=== PATIENT | male | born 1935 | race American Indian/Alaskan Native ===

== ENCOUNTER 2019-09-27 14:26 | Outpatient (CLI) | payer MEDICARE | END 2019-09-27 14:27 | disposition home or self-care (01) | LOC: WOUND 14:26 | PROVIDERS: ATTEND Surgery | DX: N30.41 Irradiation cystitis with hematuria (principal); Z85.46 Personal history of malignant neoplasm of prostate | CPT/HCPCS: 99205; G0463 ==

== ENCOUNTER 2019-10-23 10:02 | Outpatient (CLI) | payer MEDICARE | END 2019-10-23 10:03 | disposition home or self-care (01) | LOC: WOUND 10:02 | PROVIDERS: ATTEND Surgery | DX: N30.41 Irradiation cystitis with hematuria (principal); Z85.46 Personal history of malignant neoplasm of prostate | CPT/HCPCS: 99183; G0277 ==

== ENCOUNTER 2019-10-24 09:54 | Outpatient (CLI) | payer MEDICARE | END 2019-10-24 09:55 | disposition home or self-care (01) | LOC: WOUND 09:54 | PROVIDERS: ATTEND Internal Medicine | DX: M87.88 Other osteonecrosis, other site (principal); L59.8 Other specified disorders of the skin and subcutaneous tissue related to radiation; N30.41 Irradiation cystitis with hematuria; Z85.46 Personal history of malignant neoplasm of prostate; Y84.2 Radiological procedure and radiotherapy as the cause of abnormal reaction of the patient, or of later complication, without mention of misadventure at the time of the procedure | CPT/HCPCS: 99183; G0277 ==

== ENCOUNTER 2019-10-25 09:43 | Outpatient (CLI) | payer MEDICARE | END 2019-10-25 09:44 | disposition home or self-care (01) | LOC: WOUND 09:43 | PROVIDERS: ATTEND Surgery | DX: M87.88 Other osteonecrosis, other site (principal); N30.41 Irradiation cystitis with hematuria; Z85.46 Personal history of malignant neoplasm of prostate; Y84.2 Radiological procedure and radiotherapy as the cause of abnormal reaction of the patient, or of later complication, without mention of misadventure at the time of the procedure | CPT/HCPCS: 99183; G0277 ==

== ENCOUNTER 2019-10-26 09:49 | Outpatient (CLI) | payer MEDICARE | END 2019-10-26 09:50 | disposition home or self-care (01) | LOC: WOUND 09:49 | PROVIDERS: ATTEND Surgery | DX: M87.88 Other osteonecrosis, other site (principal); N30.41 Irradiation cystitis with hematuria; Z85.46 Personal history of malignant neoplasm of prostate | CPT/HCPCS: 99183; G0277 ==

== ENCOUNTER 2019-10-27 10:04 | Outpatient (CLI) | payer MEDICARE | END 2019-10-27 10:05 | disposition home or self-care (01) | LOC: VAS 10:04 → WOUND 10:04 | PROVIDERS: ATTEND Internal Medicine | DX: M87.88 Other osteonecrosis, other site (principal); N30.41 Irradiation cystitis with hematuria; Z85.46 Personal history of malignant neoplasm of prostate | CPT/HCPCS: 99183; G0277 ==

== ENCOUNTER 2019-10-30 10:00 | Outpatient (CLI) | payer MEDICARE | END 2019-10-30 12:00 | disposition home or self-care (01) | LOC: WOUND 10:00 | PROVIDERS: ATTEND Surgery | DX: M87.88 Other osteonecrosis, other site (principal); N30.41 Irradiation cystitis with hematuria; Z85.46 Personal history of malignant neoplasm of prostate | CPT/HCPCS: 99183; G0277 ==

== ENCOUNTER 2019-10-31 10:00 | Outpatient (CLI) | payer MEDICARE | END 2019-10-31 10:01 | disposition home or self-care (01) | LOC: WOUND 10:00 | PROVIDERS: ATTEND Internal Medicine | DX: M87.88 Other osteonecrosis, other site (principal); N30.41 Irradiation cystitis with hematuria; Z85.46 Personal history of malignant neoplasm of prostate | CPT/HCPCS: 99183; G0277 ==

== ENCOUNTER 2019-11-02 09:57 | Outpatient (CLI) | payer MEDICARE | END 2019-11-02 09:58 | disposition home or self-care (01) | LOC: WOUND 09:57 | PROVIDERS: ATTEND Surgery | DX: M87.88 Other osteonecrosis, other site (principal); N30.41 Irradiation cystitis with hematuria; Z85.46 Personal history of malignant neoplasm of prostate; L59.8 Other specified disorders of the skin and subcutaneous tissue related to radiation; Y84.2 Radiological procedure and radiotherapy as the cause of abnormal reaction of the patient, or of later complication, without mention of misadventure at the time of the procedure | CPT/HCPCS: 99183; G0277 ==

== ENCOUNTER 2019-11-06 09:38 | Outpatient (CLI) | payer MEDICARE | END 2019-11-06 09:39 | disposition home or self-care (01) | LOC: WOUND 09:38 | PROVIDERS: ATTEND Surgery | DX: M87.88 Other osteonecrosis, other site (principal); N30.41 Irradiation cystitis with hematuria; L59.8 Other specified disorders of the skin and subcutaneous tissue related to radiation; Z85.46 Personal history of malignant neoplasm of prostate; Y84.2 Radiological procedure and radiotherapy as the cause of abnormal reaction of the patient, or of later complication, without mention of misadventure at the time of the procedure | CPT/HCPCS: 99183; G0277 ==

== ENCOUNTER 2019-11-07 10:00 | Outpatient (CLI) | payer MEDICARE | END 2019-11-07 10:01 | disposition home or self-care (01) | LOC: WOUND 10:00 | PROVIDERS: ATTEND Internal Medicine | DX: M87.88 Other osteonecrosis, other site (principal); N30.41 Irradiation cystitis with hematuria; L59.8 Other specified disorders of the skin and subcutaneous tissue related to radiation; Z85.46 Personal history of malignant neoplasm of prostate; Y84.2 Radiological procedure and radiotherapy as the cause of abnormal reaction of the patient, or of later complication, without mention of misadventure at the time of the procedure | CPT/HCPCS: 99183; G0277 ==

== ENCOUNTER 2019-11-08 10:00 | Outpatient (CLI) | payer MEDICARE | END 2019-11-08 12:00 | disposition home or self-care (01) | LOC: WOUND 10:00 | PROVIDERS: ATTEND Surgery | DX: M87.88 Other osteonecrosis, other site (principal); N30.41 Irradiation cystitis with hematuria; L59.8 Other specified disorders of the skin and subcutaneous tissue related to radiation; Z85.46 Personal history of malignant neoplasm of prostate; Y84.2 Radiological procedure and radiotherapy as the cause of abnormal reaction of the patient, or of later complication, without mention of misadventure at the time of the procedure | CPT/HCPCS: 99183; G0277 ==

== ENCOUNTER 2019-11-09 10:00 | Outpatient (CLI) | payer MEDICARE | END 2019-11-09 10:01 | disposition home or self-care (01) | LOC: WOUND 10:00 | PROVIDERS: ATTEND Surgery | DX: M87.88 Other osteonecrosis, other site (principal); L59.8 Other specified disorders of the skin and subcutaneous tissue related to radiation; N30.41 Irradiation cystitis with hematuria; Z85.46 Personal history of malignant neoplasm of prostate; Y84.2 Radiological procedure and radiotherapy as the cause of abnormal reaction of the patient, or of later complication, without mention of misadventure at the time of the procedure | CPT/HCPCS: 99183; G0277 ==

== ENCOUNTER 2019-11-10 08:58 | Outpatient (CLI) | payer MEDICARE | END 2019-11-10 08:59 | disposition home or self-care (01) | LOC: WOUND 08:58 | PROVIDERS: ATTEND Internal Medicine | DX: M87.88 Other osteonecrosis, other site (principal); L59.8 Other specified disorders of the skin and subcutaneous tissue related to radiation; N30.41 Irradiation cystitis with hematuria; Z85.46 Personal history of malignant neoplasm of prostate; Y84.2 Radiological procedure and radiotherapy as the cause of abnormal reaction of the patient, or of later complication, without mention of misadventure at the time of the procedure | CPT/HCPCS: 99183; G0277 ==

== ENCOUNTER 2019-11-14 09:24 | Outpatient (CLI) | payer MEDICARE | END 2019-11-14 09:25 | disposition home or self-care (01) | LOC: WOUND 09:24 | PROVIDERS: ATTEND Internal Medicine | DX: M87.88 Other osteonecrosis, other site (principal); L59.8 Other specified disorders of the skin and subcutaneous tissue related to radiation; N30.41 Irradiation cystitis with hematuria; Y84.2 Radiological procedure and radiotherapy as the cause of abnormal reaction of the patient, or of later complication, without mention of misadventure at the time of the procedure | CPT/HCPCS: 99183; G0277 ==

== ENCOUNTER 2019-11-15 09:28 | Outpatient (CLI) | payer MEDICARE | END 2019-11-15 09:29 | disposition home or self-care (01) | LOC: WOUND 09:28 | PROVIDERS: ATTEND Surgery | DX: M87.88 Other osteonecrosis, other site (principal); L59.8 Other specified disorders of the skin and subcutaneous tissue related to radiation; N30.41 Irradiation cystitis with hematuria; Z85.46 Personal history of malignant neoplasm of prostate; Y84.2 Radiological procedure and radiotherapy as the cause of abnormal reaction of the patient, or of later complication, without mention of misadventure at the time of the procedure | CPT/HCPCS: 99183; G0277 ==

== ENCOUNTER 2019-11-16 09:04 | Outpatient (CLI) | payer MEDICARE | END 2019-11-16 09:05 | disposition home or self-care (01) | LOC: WOUND 09:04 | PROVIDERS: ATTEND Surgery | DX: M87.88 Other osteonecrosis, other site (principal); L59.8 Other specified disorders of the skin and subcutaneous tissue related to radiation; N30.41 Irradiation cystitis with hematuria; Z85.46 Personal history of malignant neoplasm of prostate; Y84.2 Radiological procedure and radiotherapy as the cause of abnormal reaction of the patient, or of later complication, without mention of misadventure at the time of the procedure | CPT/HCPCS: 99183; G0277 ==

== ENCOUNTER 2019-11-17 09:41 | Outpatient (CLI) | payer MEDICARE | END 2019-11-17 09:42 | disposition home or self-care (01) | LOC: WOUND 09:41 | PROVIDERS: ATTEND Surgery | DX: M87.88 Other osteonecrosis, other site (principal); L59.8 Other specified disorders of the skin and subcutaneous tissue related to radiation; N30.41 Irradiation cystitis with hematuria; Z85.46 Personal history of malignant neoplasm of prostate; Y84.2 Radiological procedure and radiotherapy as the cause of abnormal reaction of the patient, or of later complication, without mention of misadventure at the time of the procedure | CPT/HCPCS: 99183; G0277 ==

== ENCOUNTER 2019-11-20 10:00 | Outpatient (CLI) | payer MEDICARE | END 2019-11-20 12:00 | disposition home or self-care (01) | LOC: WOUND 10:00 | PROVIDERS: ATTEND Surgery | DX: M87.88 Other osteonecrosis, other site (principal); N30.41 Irradiation cystitis with hematuria; L59.8 Other specified disorders of the skin and subcutaneous tissue related to radiation; Z85.46 Personal history of malignant neoplasm of prostate; Y84.2 Radiological procedure and radiotherapy as the cause of abnormal reaction of the patient, or of later complication, without mention of misadventure at the time of the procedure | CPT/HCPCS: 99183; G0277 ==

== ENCOUNTER 2019-11-21 10:00 | Outpatient (CLI) | payer MEDICARE | END 2019-11-21 10:01 | disposition home or self-care (01) | LOC: WOUND 10:00 | PROVIDERS: ATTEND Internal Medicine | DX: M87.88 Other osteonecrosis, other site (principal); N30.41 Irradiation cystitis with hematuria; L59.8 Other specified disorders of the skin and subcutaneous tissue related to radiation; Z85.46 Personal history of malignant neoplasm of prostate; Y84.2 Radiological procedure and radiotherapy as the cause of abnormal reaction of the patient, or of later complication, without mention of misadventure at the time of the procedure | CPT/HCPCS: 99183; G0277 ==

== ENCOUNTER 2019-11-22 09:33 | Outpatient (CLI) | payer MEDICARE | END 2019-11-22 09:34 | disposition home or self-care (01) | LOC: WOUND 09:33 | PROVIDERS: ATTEND Surgery | DX: M87.88 Other osteonecrosis, other site (principal); N30.41 Irradiation cystitis with hematuria; L59.8 Other specified disorders of the skin and subcutaneous tissue related to radiation; Z85.46 Personal history of malignant neoplasm of prostate; Y84.2 Radiological procedure and radiotherapy as the cause of abnormal reaction of the patient, or of later complication, without mention of misadventure at the time of the procedure | CPT/HCPCS: 99183; G0277 ==

== ENCOUNTER 2019-11-28 09:55 | Outpatient (CLI) | payer MEDICARE | END 2019-11-28 09:56 | disposition home or self-care (01) | LOC: WOUND 09:55 | PROVIDERS: ATTEND Surgery | DX: M87.88 Other osteonecrosis, other site (principal); L59.8 Other specified disorders of the skin and subcutaneous tissue related to radiation; N30.41 Irradiation cystitis with hematuria; Z79.899 Other long term (current) drug therapy; Z85.46 Personal history of malignant neoplasm of prostate; Y84.2 Radiological procedure and radiotherapy as the cause of abnormal reaction of the patient, or of later complication, without mention of misadventure at the time of the procedure | CPT/HCPCS: 99183; G0277 ==

== ENCOUNTER 2019-11-30 08:00 | Outpatient (CLI) | payer MEDICARE | END 2019-11-30 10:00 | disposition home or self-care (01) | LOC: WOUND 08:00 | PROVIDERS: ATTEND Internal Medicine | DX: M87.88 Other osteonecrosis, other site (principal); L59.8 Other specified disorders of the skin and subcutaneous tissue related to radiation; N30.41 Irradiation cystitis with hematuria; Z79.899 Other long term (current) drug therapy; Z85.46 Personal history of malignant neoplasm of prostate; Y84.2 Radiological procedure and radiotherapy as the cause of abnormal reaction of the patient, or of later complication, without mention of misadventure at the time of the procedure | CPT/HCPCS: 99183; G0277 ==

== ENCOUNTER 2019-12-01 08:00 | Outpatient (CLI) | payer MEDICARE | END 2019-12-01 10:00 | disposition home or self-care (01) | LOC: WOUND 08:00 | PROVIDERS: ATTEND Surgery | DX: M87.88 Other osteonecrosis, other site (principal); L59.8 Other specified disorders of the skin and subcutaneous tissue related to radiation; N30.41 Irradiation cystitis with hematuria; Z79.899 Other long term (current) drug therapy; Z85.46 Personal history of malignant neoplasm of prostate; Y84.2 Radiological procedure and radiotherapy as the cause of abnormal reaction of the patient, or of later complication, without mention of misadventure at the time of the procedure | CPT/HCPCS: 99183; G0277 ==

== ENCOUNTER 2019-12-04 09:27 | Outpatient (CLI) | payer MEDICARE | END 2019-12-04 09:28 | disposition home or self-care (01) | LOC: WOUND 09:27 | PROVIDERS: ATTEND Surgery | DX: M87.88 Other osteonecrosis, other site (principal); L59.8 Other specified disorders of the skin and subcutaneous tissue related to radiation; N30.41 Irradiation cystitis with hematuria; Z79.899 Other long term (current) drug therapy; Z85.46 Personal history of malignant neoplasm of prostate; Y84.2 Radiological procedure and radiotherapy as the cause of abnormal reaction of the patient, or of later complication, without mention of misadventure at the time of the procedure | CPT/HCPCS: 99183; G0277 ==

== ENCOUNTER 2019-12-05 10:25 | Outpatient (CLI) | payer MEDICARE | END 2019-12-05 10:26 | disposition home or self-care (01) | LOC: WOUND 10:25 | PROVIDERS: ATTEND Internal Medicine | DX: M87.88 Other osteonecrosis, other site (principal); L59.8 Other specified disorders of the skin and subcutaneous tissue related to radiation; N30.41 Irradiation cystitis with hematuria; Z79.899 Other long term (current) drug therapy; Z85.46 Personal history of malignant neoplasm of prostate; Y84.2 Radiological procedure and radiotherapy as the cause of abnormal reaction of the patient, or of later complication, without mention of misadventure at the time of the procedure | CPT/HCPCS: 99183; G0277 ==

== ENCOUNTER 2019-12-06 09:32 | Outpatient (CLI) | payer MEDICARE | END 2019-12-06 09:33 | disposition home or self-care (01) | LOC: WOUND 09:32 | PROVIDERS: ATTEND Surgery | DX: M87.88 Other osteonecrosis, other site (principal); L59.8 Other specified disorders of the skin and subcutaneous tissue related to radiation; N30.41 Irradiation cystitis with hematuria; Z79.899 Other long term (current) drug therapy; Z85.46 Personal history of malignant neoplasm of prostate; Y84.2 Radiological procedure and radiotherapy as the cause of abnormal reaction of the patient, or of later complication, without mention of misadventure at the time of the procedure | CPT/HCPCS: 99183; G0277 ==

== ENCOUNTER 2019-12-07 11:17 | Outpatient (CLI) | payer MEDICARE | END 2019-12-07 11:18 | disposition home or self-care (01) | LOC: WOUND 11:17 | PROVIDERS: ATTEND Surgery | DX: M87.88 Other osteonecrosis, other site (principal); L59.8 Other specified disorders of the skin and subcutaneous tissue related to radiation; N30.41 Irradiation cystitis with hematuria; Z79.899 Other long term (current) drug therapy; Z85.46 Personal history of malignant neoplasm of prostate; Y84.2 Radiological procedure and radiotherapy as the cause of abnormal reaction of the patient, or of later complication, without mention of misadventure at the time of the procedure | CPT/HCPCS: 99183; G0277 ==

== ENCOUNTER 2019-12-08 09:09 | Outpatient (CLI) | payer MEDICARE | END 2019-12-08 09:10 | disposition home or self-care (01) | LOC: WOUND 09:09 | PROVIDERS: ATTEND Internal Medicine | DX: M87.88 Other osteonecrosis, other site (principal); L59.8 Other specified disorders of the skin and subcutaneous tissue related to radiation; N30.41 Irradiation cystitis with hematuria; Z79.899 Other long term (current) drug therapy; Z85.46 Personal history of malignant neoplasm of prostate; Y84.2 Radiological procedure and radiotherapy as the cause of abnormal reaction of the patient, or of later complication, without mention of misadventure at the time of the procedure | CPT/HCPCS: 99183; G0277 ==

== ENCOUNTER 2019-12-11 14:20 | Outpatient (CLI) | payer MEDICARE | END 2019-12-11 14:21 | disposition home or self-care (01) | LOC: WOUND 14:20 | PROVIDERS: ATTEND Surgery | DX: M87.88 Other osteonecrosis, other site (principal); L59.8 Other specified disorders of the skin and subcutaneous tissue related to radiation; N30.41 Irradiation cystitis with hematuria; Z79.899 Other long term (current) drug therapy; Z85.46 Personal history of malignant neoplasm of prostate; Y84.2 Radiological procedure and radiotherapy as the cause of abnormal reaction of the patient, or of later complication, without mention of misadventure at the time of the procedure | CPT/HCPCS: G0277 ×2; 99183 ==

== ENCOUNTER 2019-12-13 10:31 | Outpatient (CLI) | payer MEDICARE | END 2019-12-13 10:32 | disposition home or self-care (01) | LOC: WOUND 10:31 | PROVIDERS: ATTEND Surgery | DX: M87.88 Other osteonecrosis, other site (principal); L59.8 Other specified disorders of the skin and subcutaneous tissue related to radiation; N30.41 Irradiation cystitis with hematuria; Z79.899 Other long term (current) drug therapy; Z85.46 Personal history of malignant neoplasm of prostate; Y84.2 Radiological procedure and radiotherapy as the cause of abnormal reaction of the patient, or of later complication, without mention of misadventure at the time of the procedure | CPT/HCPCS: 99183; G0277 ==

== ENCOUNTER 2019-12-14 09:38 | Outpatient (CLI) | payer MEDICARE | END 2019-12-14 09:39 | disposition home or self-care (01) | LOC: WOUND 09:38 | PROVIDERS: ATTEND Surgery | DX: M87.88 Other osteonecrosis, other site (principal); L59.8 Other specified disorders of the skin and subcutaneous tissue related to radiation; N30.41 Irradiation cystitis with hematuria; Z79.899 Other long term (current) drug therapy; Z85.46 Personal history of malignant neoplasm of prostate; Y84.2 Radiological procedure and radiotherapy as the cause of abnormal reaction of the patient, or of later complication, without mention of misadventure at the time of the procedure | CPT/HCPCS: 99183; G0277 ==

== ENCOUNTER 2019-12-15 10:00 | Outpatient (CLI) | payer MEDICARE | END 2019-12-15 10:01 | disposition home or self-care (01) | LOC: WOUND 10:00 | PROVIDERS: ATTEND Internal Medicine | DX: M87.88 Other osteonecrosis, other site (principal); L59.8 Other specified disorders of the skin and subcutaneous tissue related to radiation; N30.41 Irradiation cystitis with hematuria; Z79.899 Other long term (current) drug therapy; Z85.46 Personal history of malignant neoplasm of prostate; Y84.2 Radiological procedure and radiotherapy as the cause of abnormal reaction of the patient, or of later complication, without mention of misadventure at the time of the procedure | CPT/HCPCS: 99183; G0277 ==

== ENCOUNTER 2019-12-18 13:18 | Outpatient (CLI) | payer MEDICARE | END 2019-12-18 13:19 | disposition home or self-care (01) | LOC: WOUND 13:18 | PROVIDERS: ATTEND Surgery | DX: M87.88 Other osteonecrosis, other site (principal); L59.8 Other specified disorders of the skin and subcutaneous tissue related to radiation; N30.41 Irradiation cystitis with hematuria; Z79.899 Other long term (current) drug therapy; Z85.46 Personal history of malignant neoplasm of prostate; Y84.2 Radiological procedure and radiotherapy as the cause of abnormal reaction of the patient, or of later complication, without mention of misadventure at the time of the procedure | CPT/HCPCS: 99183; G0277 ==

== ENCOUNTER 2019-12-19 09:12 | Outpatient (CLI) | payer MEDICARE | END 2019-12-19 09:13 | disposition home or self-care (01) | LOC: WOUND 09:12 | PROVIDERS: ATTEND Internal Medicine | DX: M87.88 Other osteonecrosis, other site (principal); L59.8 Other specified disorders of the skin and subcutaneous tissue related to radiation; N30.41 Irradiation cystitis with hematuria; Z79.899 Other long term (current) drug therapy; Z85.46 Personal history of malignant neoplasm of prostate; Y84.2 Radiological procedure and radiotherapy as the cause of abnormal reaction of the patient, or of later complication, without mention of misadventure at the time of the procedure | CPT/HCPCS: 99183; G0277 ==

== ENCOUNTER 2019-12-20 09:42 | Outpatient (CLI) | payer MEDICARE | END 2019-12-20 09:43 | disposition home or self-care (01) | LOC: WOUND 09:42 | PROVIDERS: ATTEND Surgery | DX: M87.88 Other osteonecrosis, other site (principal); L59.8 Other specified disorders of the skin and subcutaneous tissue related to radiation; N30.41 Irradiation cystitis with hematuria; Z79.899 Other long term (current) drug therapy; Z85.46 Personal history of malignant neoplasm of prostate; Y84.2 Radiological procedure and radiotherapy as the cause of abnormal reaction of the patient, or of later complication, without mention of misadventure at the time of the procedure | CPT/HCPCS: 99183; G0277 ==